=== PATIENT | male | born 1970 | race Caucasian/White ===

== ENCOUNTER → 2020-06-17 07:37 | Outpatient (CLI) | payer OTHER, SELFPAY ==
--- NOTE | ~2020-06-17 | MR_ITS ---
EXAMINATION: MR shoulder RT wo con DATE: 06/17/2020 08:49 INDICATION: Right shoulder pain and weakness TECHNIQUE: Magnetic resonance imaging (MRI) of the right shoulder was performed without intravenous c ontrast. Sequences included axial PD-weighted FS FSE, coronal oblique PD-weighted FS FSE, coronal obl ique T2-weighted FS FSE, sagittal PD-weighted FS FSE, and sagittal T1-weighted SE. COMPARISON: None. FINDINGS: Coracoacromial arch: The acromion undersurface is curved in morphology (type II). The coracoacromial ligament is normal. M oderate acromioclavicular osteoarthritis. Rotator cuff: Moderate supraspinatus tendinopathy without discrete tear. Mild infraspinatus tendinopathy with parti al-thickness intrasubstance tear extending 9 mm AP along the middle facet footplate of the infraspina tus tendon and involving approximately one third of the tendon thickness. The teres minor tendon is n ormal. Mild subscapularis tendinopathy with tiny intrasubstance split tear measuring approximately 3 mm craniocaudally along the lesser tuberosity footplate. Mild fatty atrophy of the teres minor muscle belly. Remaining musculature of the shoulder girdle is unremarkable. Biceps tendon, glenoid labrum and glenohumeral cartilage: Long head of the biceps tendon is normal. Moderate glenohumeral osteoarthritis with nonuniform mild p artial thickness cartilage loss with chondral surface regularity along the humeral head. More promine nt cartilage loss with full/near full-thickness chondral ulceration and fissuring along the inferior glenoid with mild underlying subarticular edema. There is additional deep fissuring with underlying s ubarticular edema at the rim of the posterior superior glenoid. Diffuse labral tear extending from th e 12:00 position around the posterior to the 5:00 position of the anteroinferior labrum. There is a p kika labral cyst originating near the 5:00 position and extending approximately 1.8 cm medially along the anteroinferior neck of the glenoid. The paravertebral cyst measures up to 9 x 9 mm in orthogonal dimensions. Fluid: Physiologic amount of fluid in the glenohumeral joint and biceps tendon sheath. No loose osteochondra l bodies. Very small amount of fluid in the subacromial/subdeltoid bursa consistent with mild bursiti s. Bones: Normal marrow signal with no edema, fracture or abnormal marrow replacing process. IMPRESSION: 1. Mild to moderate rotator cuff tendinopathy with small mild partial-thickness intrasubstance tear a long the middle facet footplate of the infraspinatus tendon and tiny intrasubstance split tear at the lesser tuberosity footplate of the subscapularis tendon. 2. Moderate glenohumeral osteoarthritis with diffuse labral tearing and paravertebral cyst rising at the anteroinferior glenoid. 3. Moderate acromioclavicular osteoarthritis. 4. Mild subacromial/subdeltoid bursitis. Reviewed, dictated and finalized at location A. IMPRESSION: 1. Mild to moderate rotator cuff tendinopathy with small mild partial-thickness intrasubstance tear along the middle facet footplate of the infraspinatus tend on and tiny intrasubstance split tear at the lesser tuberosity footplate of the subscapularis tendon. 2. Moderate glenohumeral osteoarthritis with diffuse labral tearing and paraver tebral cyst rising at the anteroinferior glenoid. 3. Moderate acromioclavicular osteoarthritis. 4. Mild subacromial/subdeltoid bursitis.
== END ==
PROVIDERS: PCP Internal Medicine; Visit Provider Orthopaedic Surgery
DX: M25.511 Pain in right shoulder (principal); M75.81 Other shoulder lesions, right shoulder; M19.012 Primary osteoarthritis, left shoulder; S43.432A Superior glenoid labrum lesion of left shoulder, initial encounter; M75.52 Bursitis of left shoulder
CPT/HCPCS: 73221

== ENCOUNTER 2023-06-06 10:59 | Outpatient (CLI) | payer BC, OTHER, SELFPAY ==
--- NOTE | ~2023-06-06 | US_ITS ---
EXAMINATION: US thyroid DATE: 06/06/2023 11:27 INDICATION: Nontoxic single thyroid nodule TECHNIQUE: Multiple ultrasound images of the thyroid were obtained. COMPARISON: None. FINDINGS: The right thyroid lobe measures 4.9 x 1.8 x 2.2 cm. The left thyroid lobe measures 4.1 x 1.5 x 1.7 c m. Single 1.4 cm solid wider than tall nodule with smooth well-defined margins and without echogenic foci in the right thyroid lobe (TI-RADS 3, mildly suspicious , FNA if >=2.5 cm, annual followup is >= 1.5 cm). There is normal echotexture and echogenicity throughout the remainder of the thyroid gland. IMPRESSION: 1. 1.4 cm TI RADS 3 right thyroid nodule which remains below size threshold criteria for either biops y or follow-up. Reviewed, dictated and finalized at location A. IMPRESSION: 1. 1.4 cm TI RADS 3 right thyroid nodule which remains below size threshold cri teria for either biopsy or follow-up.
== END 2023-06-06 11:00 | disposition home or self-care (01) ==
LOC: ANHIMG 11:01
PROVIDERS: PCP Family Medicine; Visit Provider Nurse Practitioner Family
DX: E04.2 Nontoxic multinodular goiter (principal)
CPT/HCPCS: 76536

== ENCOUNTER 2025-03-02 11:12 | Outpatient (CLI) | payer MEDICARE, SELFPAY ==
--- NOTE | ~2025-03-02 | US_ITS ---
EXAMINATION: US thyroid DATE: 03/02/2025 11:50 INDICATION: Nontoxic thyroid nodule TECHNIQUE: Multiple ultrasound images of the thyroid were obtained. COMPARISON: 06/06/2023 FINDINGS: The right thyroid lobe measures 4.7 x 1.7 x 1.9 cm. Redemonstration of a 14 x 11 x 14 mm nodule within the right lobe of the thyroid gland: Composition -solid or almost completely solid (2) Echogenicity -hyperechoic or isoechoic (1) Shape - wider than tall Margin -smooth Echogenic foci - none. = TR3 Mildly suspicious Greater than or equal to 1.5 cm: Follow-up Greater than or equal to 2.5 cm: FNA The left thyroid lobe measures 4.5 x 1.1 x 1.7 cm. The isthmus measures 0.4cm in anterior to posterior dimension. There is otherwise normal echotexture and echogenicity throughout the remainder of the thyroid gland. No additional discrete nodules identified. Normal vascular flow is present. IMPRESSION: Stable TR 3 nodule within the right lobe of the thyroid gland. This focus does not meet size criteria for FNA. While follow-up is not recommended, it may be performed. Reviewed, dictated and finalized at location A.
--- OUTSIDE RECORDS SUMMARY | 2025-03-02 12:28 | XMS_ITS | Encounter Summary ---
Author Organization [facility] Health Address [address] [place] [address] Care Team Providers Care Urology Physician Name Role Phone Justin Dodson MD Primary Care Provider + Calvin Anne MD Unavailable [phone] Reuben Boston MD Unavailable [phone] Harjit Wilkinson MD Primary Care Provider [phone] Jewel Smith MD Primary Care Provider [phone] Encounter Details Date Type Department Care Team (Late st Contact Info) Description 12/29/2022 [facility] Outpatient Visit [facility] [address] [place] [address] [place] [address] [address] Social History Tobacco Use Types Packs/Day Years Used Date Smoking Tobacco: Former Cigarettes Q uit: 1990 Smokeless Tobacco: Never Alcohol Use Standard Drinks/Week Comments Not Currently 0 (1 standard drink = 0.6 oz pur e alcohol) AUDIT-C Answer Date Recorded Q1: How often do you have a drink containing alcohol? Monthly or less 01/09/2022 Q2: How many drinks containi ng alcohol do you have on a typical day when you are drinking? Patient does not drink Q3: How often do you have si x or more drinks on one occasion? Never 01/09/2022 Hunger Vital Sign Answer Date Recorded Within the past 12 months, y ou worried that your food would run out before you got the money to buy more. Never true 01/11/20 22 Within the past 12 months, t he food you bought just didn't last and you didn't have money to get more. Never true 01/10/2022 Sex and Gender Information Value Date Recorded Sex Assigned at Male 04/08/2021 12:46 PM CDT Legal Sex Male 5:51 AM [employer] Gender Identity Male 04/08/2021 12:46 PM CDT Sexual Orientation Not on file COVID-19 Exposure Response Date Recorded In the last 10 days, have yo u been in contact with someone who was confirmed or suspected to have Coronavirus/COVID-19? No / Unsure 01/01/2023 10:45 AM CDT documented as of this encounter Plan of Treatment Not on file documented as of this encounter Visit Diagnoses Not on filedocumented in this encounter Care Teams Urology Physician Relationship Specialty Start Date End Date Justin Dodson MD [address] [place] [phone] PCP - General Internal Medicine 04/11/21 01/14/23 [place] [address] [place] [address] PCP - General Family Medicine 01/15/23 10/08/23 Jewel Smith MD [address] [place] [address] PCP - General Family Medicine 10/09/23 [place] [address] [place] [address] Surgeon Orthopedic Surgery 04/11/21 [place] [address] [place], [place] [id number] Physical Medicine and Rehabilitation 01/01/23 documented as of this encounter
--- OUTSIDE RECORDS SUMMARY | 2025-03-02 12:28 | XMS_ITS | Clinical Summary ---
Author Organization [email or web address] [place] [address] [facility] Address [address] [place] [address] Care Team Providers Care Nurse Reviewer Name Role Phone Nikhil Stovall MD Primary Care Provide r Allergies No known active allergies Medications lansoprazole (PREVACID) 30 mg Capsule, Delayed Release(E.C.) Take 30 mg by mouth. 11/04/2018 Active oxyCODONE (OxyCONTIN) 10 mg Controlled Release 12 hour crush resistant tablet Take 10 mg by mouth every 12 hours. Active zolpidem (AMBIEN) 5 mg tablet TAKE 1 TABLET (5 MG TOTAL) BY MOUTH NIGHTLY NEEDED FOR SLEEP. 1 04/04/2019 Active gabapentin (NEURONTIN) 300 mg capsuleIndicati ons:Chronic bilateral low back pain with bilateral sciatica TAKE 1 CAPSULE BY MOUTH EVERYDAY AT BEDTIME 90 Capsule 09/08/2019 Active Active Problems Problem Noted Date Diagnosed Date Morbid obesity with BMI of 50.0-59.9, adult 06/19 Facet arthritis of lumbar region 05/21/2019 Cervical stenosis of spinal canal 05/21/2019 Chronic bilateral low back pain without sciatica 01/14/2019 Family History Medical History Relation Name Comments Cancer Father Heart Disease Father Diabetes Mother Other Mother Relation Name Status Comments Father Mother Social History Tobacco Use Types Packs/Day Years Used Date Smoking Tobacco: Former Cigarettes Q uit: 1990 Alcohol Use Standard Drinks/Week Comments Never 0 (1 standard drink = 0.6 oz pur e alcohol) Sex and Gender Information Value Date Recorded Sex Assigned at Not on file Legal Sex Male 11:44 AM CDT Gender Identity Not on file Sexual Orientation Not on file Last Filed Vital Signs Vital Sign Reading Time Taken Comments Blood Pressure 120/80 07/17/2019 2:36 PM CDT Pulse - - Temperature - - Respiratory Rate 16 07/17/2019 2:36 PM CDT Oxygen Saturation - - Inhaled Oxygen Concentration - - Weight 155.1 kg (342 lb) 07/17/2019 2:36 PM CDT Height 172.7 cm (5' 8) 07/17/2019 2:36 PM CDT Body Mass Index 52 07/17/2019 2:36 PM CDT Plan of Treatment Health Maintenance Due Date Last Done Comments Pre-Diabetes and Diabetes Screening 1970 HEPATITIS B VACCINES (1 of 3 - 19+ 3-dose series) 05/19 COLORECTAL SCREENING 2015 Colorectal Cancer Screening 2015 FIT-DNA Q 3 years 2015 FIT/FOBT Q 1 year 2015 Flex Sig/CT Colonography Q 5 years 2015 ZOSTER VACCINE (1 of 2) 2020 INFLUENZA VACCINE (#1) 2024 DTAP/TDAP/TD VACCINES (2 - Td or Tdap) 03/19/2029 Insurance [facility] ANTH BLUE ACCESS [facility] Care Teams Nurse Reviewer Relationship Specialty Start Date End Date Nikhil Stovall MD PCP - General Internal Medicine 12/24/18
--- OUTSIDE RECORDS SUMMARY | 2025-03-02 12:28 | XMS_ITS | Encounter Summary ---
Author Organization [facility] Address [address] [place] [address] Care Team Providers Care Senior Scrum Master Name Role Phone Nikhil Stovall MD Primary Care Provide r Reason for Visit * Reason Comments Medication Refill Encounter Details Date Type Department Care Team (Late st Contact Info) Description 09/08/2019 Refill [facility] Rheumatology [facility] [address] [facility] [address] [place] [address] [place] [address] [facility] [address] [place] [address] Chronic bilateral low back pain with bilateral sciatica Social History Tobacco Use Types Packs/Day Years Used Date Smoking Tobacco: Former Cigarettes Q uit: 1990 Alcohol Use Standard Drinks/Week Comments Never 0 (1 standard drink = 0.6 oz pur e alcohol) Sex and Gender Information Value Date Recorded Sex Assigned at Not on file Legal Sex Male 11:44 AM CDT Gender Identity Not on file Sexual Orientation Not on file documented as of this encounter Plan of Treatment Not on file documented as of this encounter Visit Diagnoses Diagnosis Chronic bilateral low back pain with bilateral sciatica documented in this encounter Care Teams Senior Scrum Master Relationship Specialty Start Date End Date Nikhil Stovall MD PCP - General Internal Medicine 12/24/18 documented as of this encounter
--- OUTSIDE RECORDS SUMMARY | 2025-03-02 12:28 | XMS_ITS | Encounter Summary ---
Author Organization [facility] Address [address] [place] [address] Care Team Providers Care Staff Veterinarian Name Role Phone Aylin Stevenson NP Primary Care Provider [phone] Haven Jimenez Primary Care Provider [phone] Encounter Details Date Type Department Care Team (Late st Contact Info) Description 01/24/2023 [facility] Message [facility] Family & Internal Medicine [facility] [id number] [place] [phone] [place], [facility] Provider follow up Social History Tobacco Use Types Packs/Day Years Used Date Smoking Tobacco: Former Cigarettes 1 5 0 04/28/1987 - 04/28/1992 Cigars Smokeless Tobacco: Never Alcohol Use Standard Drinks/Week Comments Never 0 (1 standard drink = 0.6 oz pur e alcohol) AUDIT-C Answer Date Recorded Frequency of Alcohol Consumption Never 03/19/2019 Average Number of Drinks Not on file 019 Frequency of Binge Drinking Not on file 11/2018 PHQ-2 Answer Date Recorded PHQ-2 Score - If the patient scores above 3, please move on to questions 3-9 0 03/01/2022 Education Answer Date Recorded What is the highest level of school you have completed or the highest degree you have received? High school graduate 04/16/2020 Sex and Gender Information Value Date Recorded Sex Assigned at Not on file Legal Sex Male 4:16 PM CDT Gender Identity Not on file Sexual Orientation Not on file documented as of this encounter Plan of Treatment Not on file documented as of this encounter Visit Diagnoses Not on filedocumented in this encounter Care Teams Staff Veterinarian Relationship Specialty [place] [address] [address], [address] [place] [address] PCP - General Nurse Practitioner Family 12/22/2204/17 Haven Jimenez APNP [address] [id number] PCP - General Nurse Practitioner Family 07/23/23 documented as of this encounter
--- OUTSIDE RECORDS SUMMARY | 2025-03-02 12:28 | XMS_ITS | Clinical Summary ---
Author Organization [facility] Address [address] [place] [address] Care Team Providers Care Packing Clerk Name Role Phone Calvin Anne MD Unavailable [phone] Reuben Boston MD Unavailable [phone] Jewel Smith MD Primary Care Provider [phone] Source Comments [facility],non-owned Affiliates and Associated Physician Practices is amultiple site organization consisting of ambulatory clinics and hospital sitesin [place], [place], [place] and [place]. This disclosure is being madepursuant to the Care Everywhere program and may not contain all information available regarding this patient. Last updated 18.[facility] Allergies No known active allergies Medications * Be aware that medications may not be up to date on this document. Alwaysverify current medications with the patient. cyclobenzaprine (Flexeril) 10 MG tablet Take 1 (one) tablet by mouth 3 times daily as needed for Muscle Spasms 30 tablet 1 4 Active HYDROcodone-acetamin ophen ([place]) 5-325 MG tabletIndications:Af tercare following surgery of the musculoskeletal system Take 1 (one) tablet by mouth every 6 hours as needed 30 tablet 4 Active Active Problems Problem Noted Date Diagnosed Date Primary osteoarthritis of right knee 02/23/2022 History of left knee replacement 02/01/2022 Primary osteoarthritis of both knees 04/12/2021 Facet arthritis of lumbar region 05/21/2019 Cervical stenosis of spinal canal 05/21/2019 Degeneration of intervertebral disc of lumbar re gion 01/28/2019 Overview (07/11/2021): Last Assessment & Plan: See low back pain, above. Insomnia due to medical condition 01/28/2019 Overview (07/11/2021): Last Assessment & Plan: Patient with increased insomnia secondary to pain with recent discontinuance of his opiates. Willing to trial zolpidem for symptom relief. Will start with 5 mg and he may titrate if needed. Encounters Date Type Department Care Team Description 12/11/2024 7:30 AM CDT Office Visit [address] [place] [address] Reuben Boston MD Bulge of lumbar disc without myelopathy (Primary Dx); Lumbar foraminal stenosis; Lumbar radiculitis; Gait difficulty 12/11/2024 7:20 AM CDT - 12/11/2024 11:59 PM CDT Hospital Encounter [address] [address] Reuben Boston MD Discharge Disposition: Home or Self Care 12/11/2024 7:19 AM CDT Hospital Encounter [address] [address] Reuben Boston MD Discharge Disposition: Home or Self Care 12/09/2024 Travel 12/04/2024 10:30 AM CDT Office Visit [address] [place] [address] Reuben Boston MD Myofascial pain (Primary Dx); Lumbar radiculitis; Bulge of lumbar disc without myelopathy; Lumbar foraminal stenosis; Spinal stenosis of lumbar region, unspecified whether neurogenic claudication present; Gait difficulty from Last 3 Months Immunizations Immunization Administration Dates Next Due TDAP (7yrs+) 03/19/2019 Family History Medical History Relation Name Comments Diabetes - Type 1 Brother CAD (Coronary Artery Disease) Father Heart Failure Father Diabetes - Type 1 Mother Diabetes - Type 1 Sister Relation Name Status Comments Brother Father Mother Sister Social History Tobacco Use Types Packs/Day Years Used Date Smoking Tobacco: Former Cigarettes Q uit: 1990 Smokeless Tobacco: Never Tobacco Cessation:Counseling Given: Not Answered Alcohol Use Standard Drinks/Week Comments Not Currently 12 (1 standard drink = 0.6 oz pu re alcohol) OASIS D0700: Social Isolation Answer Da te Recorded Frequency of experiencing loneliness or isolatio n Never 01/31/2023 OASIS A1250: Transportation Answer Date Recorded Lack of Transportation (Medical) No 01/31/2023 Lack of Transportation (Non-Medical) No 01/31/2023 Patient Unable or Declines to Respond No 01/31/2023 OASIS B1300: Health Literacy Answer Perez e Recorded Frequency of needing help to read materials from doctor or pharmacy Never 01/31/2023 AUDIT-C Answer Date Recorded Q1: How often do you have a drink containing alcohol? Monthly or less 01/28/2024 Q2: How many drinks containi ng alcohol do you have on a typical day when you are drinking? Patient does not drink Q3: How often do you have si x or more drinks on one occasion? Never 01/28/2024 PHQ-2 Answer Date Recorded Patient Health Questionnaire-2 Score 0 12/10/2024 Hunger Vital Sign Answer Date Recorded Within the past 12 months, y ou worried that your food would run out before you got the money to buy more. Never true 01/29/20 24 Within the past 12 months, t he food you bought just didn't last and you didn't have money to get more. Never true 01/29/2024 Sex and Gender Information Value Date Recorded Sex Assigned at Male 04/08/2021 12:46 PM CDT Legal Sex Male 5:51 AM TRAINING AND DEVELOPMENT COORDINATOR Gender Identity Male 04/08/2021 12:46 PM CDT Sexual Orientation Not on file Last Filed Vital Signs Vital Sign Reading Time Taken Comments Blood Pressure 156/79 12/11/2024 7:52 AM CDT Pulse 71 12/11/2024 7:52 AM CDT Temperature 36.5 C (97.7 F) 01/29/2024 11:32 AM CDT Respiratory Rate 16 12/11/2024 7:52 AM CDT Oxygen Saturation 100% 12/11/2024 7:52 AM CDT Inhaled Oxygen Concentration - - Weight 136.1 kg (300 lb) 08/05/2024 10:22 AM TRAINING AND DEVELOPMENT COORDINATOR Height 170.2 cm (5' 7) 08/05/2024 10:22 AM TRAINING AND DEVELOPMENT COORDINATOR Body Mass Index 46.99 08/05/2024 10:22 AM TRAINING AND DEVELOPMENT COORDINATOR Plan of Treatment Health Maintenance Due Date Last Done Comments COLOGUARD (AGES 45-75) - COLON CA SCREENING 1970 COLON MONITORING 1970 COLONOSCOPY - COLON CA SCREENING 1970 CT COLONOGRAPHY - COLON CA SCREENING 1970 Colorectal Cancer Screening 1970 FIT - COLON CA SCREENING 1970 FLEX SIG - COLON CA SCREENING 1970 HIV SCREENING 1985 HEPATITIS C SCREENING 06/02/1988 HEPATITIS B VACCINE (1 of 3 - 19+ 3-dose series) 1989 PNEUMOCOCCAL VACCINE 50+ (1 of 1 - PCV) 2020 ZOSTER VACCINE (1 of 2) 2020 COVID-19 VACCINE (1 - season) 2024 MEDICARE AWV CALENDAR YEAR 2024 INFLUENZA VACCINE (Season Ended) 2025 SCREENING FOR DIABETES 01/08/2027 , 07/23/2023, 07/23/2023, Additional history exists LIPID TESTING 07/23/2028 07/23/2023, 05/17/2021 DTAP/TDAP/TD VACCINES (2 - Td or Tdap) 03/19/2029 03/19/2019 DEPRESSION SCREENING Completed 12/04/2024, 06/30/20 HIB VACCINE Aged Out No longer eligi ble based on patient's age to complete this topic HPV VACCINE Aged Out No longer eligi ble based on patient's age to complete this topic MENINGOCOCCAL (Group B) VACCINE SHARED DECISION-MAKING Aged Out No longer eligible based on patient's age to complete this topic MENINGOCOCCAL GROUPS A/C/Y/W VACCINE Aged Out No longer eligible based on patient's age to complete this topic Medical Devices Implanted Type Area Hot Metal Car Operator Device Identifier Shelf Expiration Date Model / Serial / Lot 54 Mm 3- Level Plate Implanted:Qt y: 1 on 01/28/2024 by Tino Armendariz MD at [facility] Implant Non-Ortho N/A: Spine Cervical 110.354 / / Cmnt Bone Djo Srg Cblt 40gm Hvisc Strl Implanted:Qt y: 2 on 01/09/2022 by Calvin Anne MD at [facility] Left: Knee [employer] 01/03/2023 600-15-000 / / [id number] Cmpnt Ptlr 31mm 1 Pg Wire Ascnt Arcm Kn Implanted:Qt y: 1 on 01/09/2022 by Calvin Anne MD at [facility] Left: Knee [employer] 12/12/2026 [id number] / / [id number] Tray Tib 83mm Kn Cocr I Beam Implanted:Qt y: 1 on 01/09/2022 by Calvin Anne MD at [facility] Left: Knee [employer] 09/02/2031 [id number] / / [id number] Cmpnt Fem Kn Lt Cr Cmnt Prm Vngrd Intlk 75mm Implanted:Qt y: 1 on 01/09/2022 by Calvin Anne MD at [facility] Left: Knee [employer] 10/11/2031 [id number] / / [id number] Brng 12lyx02yr Vngrd Arcm Kn Ant Stab Implanted:Qt y: 1 on 01/09/2022 by Calvin Anne MD at [facility] Left: Knee [employer] 08/18/2026 [id number] / / [id number] Brng [id number] Vngrd Arcm Kn Ant Stab Implanted:Qt y: 1 on 01/15/2023 by Calvin Anne MD at [facility] Right: Knee [employer] 11/03/2027 [id number] / / [id number] Cmnt Bone Refobacin Strl Lf Disp Implanted:Qt y: 2 on 01/15/2023 by Calvin Anne MD at [facility] Right: Knee [employer] 03/16/2025 [id number] / / [id number] Cmpnt Fem Kn Rt Cr Cmnt Prm Vngrd Intlk 75mm Implanted:Qt y: 1 on 01/15/2023 by Calvin Anne MD at [facility] Right: Knee [employer] 08/05/2032 [id number] / / [id number] Cmpnt Ptlr Std 31mm 3 Pg Kn Ser A Implanted:Qt y: 1 on 01/15/2023 by Calvin Anne MD at [facility] Right: Knee [employer] 12/01/2027 [id number] / / [id number] Tray Tib 83mm Kn Cocr I Beam Implanted:Qt y: 1 on 01/15/2023 by Calvin Anne MD at [facility] Right: Knee [employer] 10/14/2032 [id number] / / [id number] Graft Bone Tissue Lrdtc Algrf Ant Spt Implanted:Qt y: 1 on 01/28/2024 by Tino Armendariz MD at [facility] N/A: Spine Cervical Spinal [employer] 01/17/2026 [id number] / / [id number] Graft Bone Crstn Asr Dustin [facility] - [id number] Implanted:Qt y: 1 on 01/28/2024 by Tino Armendariz MD at [facility] N/A: Spine Cervical Spinal [employer] 12/25/2025 [id number] / [id number] / [id number] Graft Bone Crstn Asr Dustin [facility] - [id number] Implanted:Qt y: 1 on 01/28/2024 by Tino Armendariz MD at [facility] N/A: Spine Cervical Spinal [employer] 12/25/2025 [id number] / [id number] / [id number] Screw 4mm 16mm Std Spne Slfdrl Asr Ti Implanted:Qt y: 6 on 01/28/2024 by Tino Armendariz MD at [facility] N/A: Spine Cervical [employer] 110.616 / / Screw 4mm 16mm Ant Cspn Slfdrl Rgd Asr Implanted:Qt y: 2 on 01/28/2024 by Tino Armendariz MD at [facility] N/A: Spine Cervical [facility] 110.016 / / Screw Set Ti 4mm Spne Crv Ant Slf-Tap Implanted:Qt y: 2 on 01/28/2024 by Tino Armendariz MD at [facility] N/A: Spine Cervical [facility] 110.050 / / Procedures Procedure Name Priority Date/Time Associated Diagnosis Comments PAIN MANAGEMENT PROCEDURE TIME Routine 12/11/2024 7:46 AM CDT Lumbar radiculopathy COMPREHENSIVE METABOLIC PANEL STAT 01/09/2024 9:53 AM CDT Preop examination from Last 3 Months or Most Recently Relevant to Health Maintenance Results * PAIN MANAGEMENT PROCEDURE TIME (12/11/2024 7:46 AM CDT) Anatomical Region Laterality Modality X-Ray Angiograph y Narrative 12/11/2024 7:53 AM CDT Reuben Boston MD 12/11/2024 7:54 AM Transforaminal Right L4 Selective Nerve Root Injection Celestine Pitt [id number] 12/11/2024 No Known Allergies Procedure: Transforaminal Right L4 Selective Nerve Root Steroid Injection Under Fluoroscopy Indication for Procedure: Radicular pain in the lower extremity/Lumbar foraminal stenosis/Lumbar disc bulge . M54.16 Informed Consent: After the patient, Celestine Pitt, was informed of the risks and benefits of the procedure and all questions were answered, the consent was signed. Prep:Patient identified, proper procedure and site verified, marked by Dr. Pryor. In the prone position,right L4 pedicle, and transverse process were identified under fluoroscopy and marked on the patient's skin. The skin was prepped in a routine sterile fashion using chloroprep. Responsible bus van driver not needed as the patient is not having sedation. Under fluoroscopy, a 22 gauge, 6 inch spinal needle was slowly inserted towards the right L4 foramen after 1 % lidocaine MPF was used to anesthetize the skin , subcutaneous tissue and the muscle overlying the area.Once the tip of the needle was in proper position, 0.5ml of Isovue-M 200 was slowly injected to outline the selective nerve root pattern. Symptoms were reproduced in the nerve root distribution. 1.0 ml of Dexamethasone 10 mg per ml and 3.0 ml of normal saline (preservative free) were injected in a slow, incremental fashion after aspiration revealed no blood or CSF return. The needle was removed, the skin was cleaned, and ensured no bleeding was noted. Total Lidocaine : 2ml Total Dexamethasone :10mg Total Isovue-M 200 : 0.5ml, 9.5 ml wasted The patient tolerated the procedure well without complications. The patient was taken to the recovery area and remained stable without complications. Vital signs stable. Injection site clean, dry, and intact. Post procedure instructions were given to the patient and follow up appointment was confirmed. The patient was discharged with information on how to reach the clinic at any time for questions or concerns. Patient ambulatory, denies complaints, DC to home. Patient survey given. Procedure codes: 04371 Pre VAS 04/26 Post VAS 11/24 Reuben Boston MD Reuben Boston MD DIAGNOSTIC IMAGING ORDERABLE S Final Result * COMPREHENSIVE METABOLIC PANEL (01/09/2024 9:53 AM CDT) Glucose 105 70 - 105 mg/dL 01/09/2024 10:22 AM CDT [facility] Sodium 141 136 - 145 mmol/L 01/09/2024 10:22 AM CDT [facility] Potassium 4.7 3.5 - 5.1 mmol/L 01/09/2024 10:22 AM CDT [facility] Chloride 107 98 - 107 mmol/L 01/09/2024 10:22 AM CDT [facility] CO2 27 22 - 29 mmol/L 01/09/2024 10:22 AM CDT [facility] Calcium 9.4 8.4 - 10.4 mg/dL 01/09/2024 10:22 AM CDT [facility] Anion Gap 7 6 - 16 mmol/L 01/09/2024 10:22 AM CDT [facility] BUN 25 7 - 26 mg/dL 01/09/2024 10:22 AM CDT [facility] Creatinine 0.87 0.72 - 1.25 mg/dL 01/09/2024 10:22 AM CDT [facility] Alkaline Phosphatase 58 40 - 150 U/L 01/09/2024 10:22 AM CDT [facility] ALT 15 0 - 55 U/L 01/09/2024 10:22 AM CDT [facility] AST 20 5 - 34 U/L 01/09/2024 10:22 AM CDT [facility] Protein Total 7.4 6.4 - 8.3 gm/dL 01/09/2024 10:22 AM CDT [facility] Albumin 3.9 3.4 - 5.0 gm/dL 01/09/2024 10:22 AM CDT [facility] Bilirubin Total 0.8 0.2 - 1.2 mg/dL 01/09/2024 10:22 AM CDT [facility] eGFR by CKD-EPI >90 >=90 mL/min/1.7 3 m2 01/09/2024 10:22 AM CDT [facility] Blood BLOOD SPECIMEN / Unknown Venipuncture / Unknown 01/09/2024 9:53 AM CDT 01/09/2024 10:00 AM CDT Philly Nava TYPO MACHINE OPERATOR-POPULATION HEALTH MANAGER LAB - CHEMISTRY ORDERABLE S Final Result [facility] [address] [place] [address] from Last 3 Months or Most Recently Relevant to Health Maintenance Insurance [employer] MEDICARE ADV Advance Directives * Full Code (Latest Code Status on File) Date Activated Date Inactivated Comments 01/28/2024 3:38 PM 01/29/2024 3:25 PM * Full Code Date Activated Date Inactivated Comments 01/17/2023 2:20 PM 01/28/2024 5:26 AM To update the patient's code status, place a code status order. Do not modify or discontinue any currently active code status orders. * Full Code Date Activated Date Inactivated Comments 01/15/2023 11:07 AM 01/16/2023 2:42 PM * Full Code Date Activated Date Inactivated Comments 01/09/2022 9:45 AM 01/10/2022 2:55 PM Care Teams Packing Clerk Relationship Specialty Start Date End Date Jewel Smith MD [address] [place] [address] PCP - General Family Medicine 10/09/23 [place] [address] [place] [address] Surgeon Orthopedic Surgery 04/11/21 [place] [address] [place] [address] Physical Medicine and Rehabilitation 01/01/23
== END 2025-03-02 11:13 | disposition home or self-care (01) ==
PROVIDERS: PCP Family Medicine; Visit Provider Nurse Practitioner Family
DX: E04.1 Nontoxic single thyroid nodule (principal); R09.A2 Foreign body sensation, throat
CPT/HCPCS: 76536